=== PATIENT | male | born 1950 | race Two or more races ===

== ENCOUNTER 2019-08-31 12:44 | Inpatient (IN) | payer OTHER ==
[~2019-08-31] VITALS: Ht 165.1 cm; Wt 80.0 kg
[2019-08-31 14:03] LABS: Basophils # (auto) 0.1 uL; Basophils % (auto) 0.6 % (0.0-2.0); Eosinophils # (auto) 0.1 uL; Hematocrit 48.3 % (41.0-53.0); Lymphocytes # (auto) 2.4 uL; Lymphocytes % (auto) 18.3 % (10.0-50.0); Mean Corpuscular Hemoglobin 30.5 pg (28.0-32.0); Mean Corpuscular Volume 92.4 fL (80.0-100.0); Monocytes % (auto) 7.7 % (0.0-12.0); Neutrophils # (auto) 9.3 uL; Neutrophils % (auto) 72.4 % (37.0-80.0); Platelet Count (auto) 292 10^3/uL (140-450); Red Blood Cells 5.23 10^6/uL (4.5-5.90); Red Cell Distribution Width 14.1 % (11.8-14.3); White Blood Cell 12.9 10^3/uL (4.4-10.8)
[2019-08-31 14:19] LABS: INR 1.02 (0.9-1.15)
[2019-08-31] MEDS ORDERED: CLOPIDOGREL BISULFATE 75 MG TAB PO ONE (15:15)
[2019-08-31] MEDS ORDERED: LABETALOL HCL 5 MG/ML ML 20ML VIAL IV PRN (15:30)
[2019-08-31] MEDS ORDERED: LACTULOSE 20Gm/30ML SOLN PO PRN ×2 (15:30)
[2019-08-31] MEDS ORDERED: ACETAMINOPHEN 500 MG TAB PO PRN (15:30)
[2019-08-31] MEDS ORDERED: traMADol HCL 50 MG TAB PO PRN (15:30)
[2019-08-31] MEDS ORDERED: NITROGLYCERIN 0.4 MG SL TAB SL PRN (15:30)
[2019-08-31] MEDS ORDERED: methylPREDNISolone SOD SUCC 125 MG/2 ML VL IV ONE (15:30)
[2019-08-31] MEDS ORDERED: MORPHINE SULF INJ 2 MG/ML SYRINGE 1ML IV PRN (15:30)
[2019-08-31] MEDS ORDERED: PROMETHAZINE HCL 25 MG/ML 1ML IV PRN (15:30)
[2019-08-31] MEDS: methylPREDNISolone SOD SUCC 40 MG/ML VL IV SCH (15:30)
[2019-08-31] MEDS ORDERED: ALBUTEROL SULF 2.5 MG/0.5ML(0.5%) NEB SOLN NEB PRN (15:30)
[2019-08-31 16:00] LABS: Urine Bacteria NONE SEEN /hpf (None Seen); Urine Blood Negative /uL (Negative); Urine Hyaline Cast FEW /lpf (0 - 2); Urine Mucus FEW (None Seen); Urine Specific Gravity 1.025 (1.001-1.035); Urine WBC 4 /hpf (0 - 3)
[2019-08-31 16:11] LABS: Alcohol, Urine < 3.0 mg/dL (0-5); Amphetamine Screen, Urine NEGATIVE (NEGATIVE); Barbiturate Scree,Urine NEGATIVE (NEGATIVE); Benzodiazephine Screen, Urine NEGATIVE (NEGATIVE); Cannabinoid Screen, Urine NEGATIVE (NEGATIVE); Cocaine Screen, Urine NEGATIVE (NEGATIVE); Opiate Scree,Urine NEGATIVE (NEGATIVE); Phencyclidine Screen, Urine NEGATIVE (NEGATIVE)
[2019-08-31] MEDS: DOXYCYCLINE 100MG/250ML 250 ML IV SCH (16:34)
[2019-08-31] MEDS: SODIUM CHLORIDE 0.9% 1,000 ML IV SCH (16:35)
[2019-08-31] MEDS: ALBUTEROL SULF 2.5 MG/0.5ML(0.5%) NEB SOLN NEB SCH (18:22)
[2019-08-31] MEDS: IPRATROPIUM BROM 0.5 MG/2.5ML INH SOL NEB SCH (18:23)
--- NOTE | 2019-08-31 18:49 | NUR ---
PT ADMITTED TO FLOOR FROM E.R. VIA WHEEL CHAIR NO DISTRESS NOTED. PT REPORTS NO PAIN AT THIS TIME. PT A AND 0 X 4 AND AMBULATORY. PT ORIENTED TO UNIT AND CALL LIGHT. BED IN LOWEST LOCKED POSITION WITH SIDE RAILS UP X 2. VITALS: T 97.7, BP 149/86, 02 91% ON RA, HR 70, RR 16. PT EATING DINNER, FAMILY AT BEDSIDE, WILL CONTINUE TO MONITOR.
[2019-08-31 18:56] VITALS: BP 172/87
[2019-08-31] MEDS ORDERED: ASPI81CH43 PO (18:57)
[2019-08-31 19:02] VITALS: BP 149/86
[2019-08-31 20:00] VITALS: BP 121/62
--- NOTE | 2019-08-31 20:00 | NUR ---
Opening Shift Note Assumed care of patient, awake and alert. No S/S of distress/SOB or pain. Instructed on POC and to call for assist PRN, will continue to monitor for changes Q1hr and PRN. Patient resting in bed comfortably with family members at bedside. Bed in low position and call light in reach.
[2019-08-31] MEDS ORDERED: ATORVASTATIN 20 MG TAB PO SCH (22:00)
[2019-08-31 22:19] VITALS: BP 121/62
[2019-08-31] MEDS: TEMAZEPAM 15 MG CAP PO PRN (22:36)
[2019-09-01] MEDS: ALBUTEROL SULF 2.5 MG/0.5ML(0.5%) NEB SOLN NEB SCH ×4 (00:53→17:55)
[2019-09-01] MEDS: IPRATROPIUM BROM 0.5 MG/2.5ML INH SOL NEB SCH ×4 (00:53→17:55)
[2019-09-01] MEDS: methylPREDNISolone SOD SUCC 40 MG/ML VL IV SCH ×2 (03:58→17:17)
[2019-09-01] MEDS: DOXYCYCLINE 100MG/250ML 250 ML IV SCH ×2 (03:59→17:18)
[2019-09-01] MEDS: SODIUM CHLORIDE 0.9% 1,000 ML IV SCH ×3 (04:02→20:40)
[2019-09-01 05:51] VITALS: BP 140/66
[2019-09-01 06:35] LABS: Basophils # (auto) 0 uL; Basophils % (auto) 0.2 % (0.0-2.0); Eosinophils # (auto) 0 uL; Hematocrit 44.1 % (41.0-53.0); Hemoglobin 14.7 g/dL (13.5-17.5); Lymphocytes # (auto) 0.9 uL; Lymphocytes % (auto) 5.8 % (10.0-50.0); Mean Corpuscular Hemoglobin 30.8 pg (28.0-32.0); Mean Corpuscular Hgb Conc. 33.3 g/dL (32.0-36.0); Mean Corpuscular Volume 92.5 fL (80.0-100.0); Monocytes # (auto) 0.3 uL; Monocytes % (auto) 1.9 % (0.0-12.0); Neutrophils # (auto) 14.3 uL; Neutrophils % (auto) 92.1 % (37.0-80.0); Platelet Count (auto) 266 10^3/uL (140-450); Red Blood Cells 4.77 10^6/uL (4.5-5.90); Red Cell Distribution Width 14.2 % (11.8-14.3); White Blood Cell 15.5 10^3/uL (4.4-10.8)
[2019-09-01 07:02] LABS: Cholesterol 146 mg/dL (< 200); HDL Cholesterol 62 mg/dL (40-59); LDL Cholesterol 78 mg/dL (< 100); Triglycerides 59 mg/dL (< 150)
[2019-09-01 07:19] LABS: Albumin 3.1 g/dL (3.4-5.0); BUN/Creatinine Ratio 18.6; Calcium 8.6 mg/dL (8.5-10.1); Potassium 5.1 mmol/L (3.5-5.1)
[2019-09-01 07:22] LABS: Bilirubin, Total 0.3 mg/dL (0.2-1.0); Total Protein 6.4 g/dL (6.4-8.2)
[2019-09-01] MEDS: ASPirin 81 mg TAB PO SCH (08:47)
[2019-09-01] MEDS: ENOXAPARIN SOD 40 MG/0.4 ML SYRINGE SC SCH (08:47)
[2019-09-01 09:00] VITALS: BP 138/73
[2019-09-01] MEDS ORDERED: ENOXAPARIN SOD 40 MG/0.4 ML SYRINGE SC SCH (10:00)
--- NOTE | 2019-09-01 11:53 | NUR ---
DR MUNOZ SAW PATIENT AND FAMILY AND DISCUSSED POC. PATIENT AND FAMILY UPDATED ON PENDING TESTS. WILL CONTINUE TO MONITOR.
--- NOTE | 2019-09-01 11:57 | NUR ---
NEURO CONSULT CALLED IN AT 1600 ON 08/[address] MUNOZ PT WBC COUNT IS TRENDING UPWARD AT 15.5. AWARE.
[2019-09-01 13:00] VITALS: BP 133/77
[2019-09-01 17:00] VITALS: BP 134/67
--- NOTE | 2019-09-01 17:25 | NUR ---
Spoke with Dr Tavarez at nursing station, requested he see patient. Dr Tavarez aware. Influenza swab sent to lab.
--- NOTE | 2019-09-01 18:10 | NUR ---
SPOKE WITH DR LEMA AT NURSING STATION, REPORTS PATIENT CANNOT DRIVE.
--- NOTE | 2019-09-01 18:45 | NUR ---
RADIOLOGY CALLED. THEY REPORT ANOTHER IV IS NEEDED AND TO KEEP PT NPO FOR SCAN. ATTEMPTED IV TWICE USING STERILE TECHNIQUE, ONCE TO LFA AND ONCE TO LAC, UNSUCCESSFUL. PRESSURE DRESSINGS APPLIED. PT TOLERATED PROCEDURE WELL BUT REPORTS HE JUST WANTS TO SLEEP NOW. WILL ENDORSE TO [employer].
--- NOTE | 2019-09-01 19:05 | NUR ---
OPENING NOTE- NOC SHIFT PATIENT IS IN BED AND STATES THAT HE IS TIRED AND IS FEELING AGITATED. PATIENT STATES THAT HE WOULD LIKE A SLEEPING PILL AND WANTS TO SLEEP SOON POSSIBLE, STATES THAT HE HAS HAD LITTLE SLEEP FOR TWO DAYS. PATIENT BED IS LOCKED AT LOWEST, BED RAILS UP X2 AND HEAD OF BED IS UP >30 DEGREES FOR SAFETY PRECAUTIONS. BEDSIDE TABLE WITHIN REACH, CALL LIGHT WITHIN REACH. DISCUSSED POC WITH PATIENT AND INSTRUCTED PATIENT TO CALL PRN; PATIENT VERBALIZED UNDERSTANDING. WILL CONTINUE TO MONITOR Q1H AND PRN.
[2019-09-01] MEDS: TEMAZEPAM 15 MG CAP PO PRN (20:40)
--- NOTE | 2019-09-01 20:40 | NUR ---
PER DR LUNA STEINER TO HAVE CT ANGIO ON 09/02; PATIENT REFUSES TONIGHT.
[2019-09-01] MEDS: ATORVASTATIN 20 MG TAB PO SCH (20:42)
[2019-09-01 22:00] VITALS: BP 130/67
[2019-09-02] MEDS: methylPREDNISolone SOD SUCC 40 MG/ML VL IV SCH (03:18)
[2019-09-02] MEDS: DOXYCYCLINE 100MG/250ML 250 ML IV SCH (03:18)
[2019-09-02] MEDS: SODIUM CHLORIDE 0.9% 1,000 ML IV SCH ×2 (03:18→14:42)
--- NOTE | 2019-09-02 03:19 | NUR ---
PATIENT STATES THAT HE WILL NOT HAVE CT ANGIO IN THE MORNING. PATIENT STATES THAT THIS PROCEDURES IS CAUSING HIM ANXIETY AND STRESS AND THAT HE DOES NOT WANT TO HAVE IT DONE. PATIENT STATES "THERE HAS TO BE SOME OTHER WAY TO SATISFY THIS WHOLE INSURANCE THING". PATIENT REFUSES TO HAVE A SECOND IV INSERTED WHICH IS NECESSARY FOR THE THE CT. EDUCATED PATIENT ON IMPORTANCE OF READING OF CT ANGIO BUT PATIENT STILL REFUSES.
[2019-09-02] MEDS: ALBUTEROL SULF 2.5 MG/0.5ML(0.5%) NEB SOLN NEB SCH ×4 (05:38→19:04)
[2019-09-02] MEDS: IPRATROPIUM BROM 0.5 MG/2.5ML INH SOL NEB SCH ×4 (05:38→19:04)
[2019-09-02 06:00] VITALS: BP 140/70
--- NOTE | 2019-09-02 06:50 | NUR ---
CLOSING NOTE- NOC SHIFT PATIENT RESTING IN BED. PATIENT UP TO RESTROOM MULTIPLE TIMES DURING THE NIGHT. STEADY GAIT NOTED. PATIENT CONTINUES TO REFUSE CT ANGIO SCANS; RADIOLOGY DEPT MADE AWARE. PATIENT INSISTS THAT HE DOES NOT WANT A SECOND IV INSERTED. WILL ENDORSE PATIENT CARE TO DAY SHIFT RN.
--- NOTE | 2019-09-02 08:00 | NUR ---
Received pt resting in bed, call light within reach, no pain or distress noted or reported, will continue to monitor pt.
[2019-09-02] MEDS: ASPirin 81 mg TAB PO SCH (09:29)
[2019-09-02] MEDS: ENOXAPARIN SOD 40 MG/0.4 ML SYRINGE SC SCH (09:30)
[2019-09-02 10:00] VITALS: BP 130/72
--- NOTE | 2019-09-02 11:36 | NUR ---
Assessment and ss consult Pt is a 69 year old alert and oriented female. SS consult given for "living situation." Pt's neighbor, Ashish, are his emergency contact at [phone]. Prior to admit, pt was ambulatory and independent with ADL's. Pt stated that he was admitted because he hit his head and that he is having a hard time remembering things. Pt stated that he is currently able to walk, talk and build still but stated that he is having memory problems currently. 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 Pt's stated that he has really good support from his neighbors and that his family will be in town during the upcoming weekend and can help out where needed. Pt stated that his neighbor, Rosalba, will transport him home. Addendum: 09/02/19 at 1158 by MALGORZATA QUINTANA Amended: Links added.
[2019-09-02 12:00] VITALS: BP 136/71
[2019-09-02] MEDS: DOXYCYCLINE 100 MG TAB/CAP PO SCH (15:16)
[2019-09-02 17:00] VITALS: BP 113/58
--- NOTE | 2019-09-02 17:25 | NUR ---
Dr. Lopez / neuro at unit, doctor informed of pt's brain MRI and neck MRI results, no orders received.
--- NOTE | 2019-09-02 19:00 | NUR ---
OPENING NOTE- NOC SHIFT PATIENT IS ALERT AND ORIENTED X4, PATIENT IS COMFORTABLE IN BED. NO S/SX OF DISTRESS, SOB OR PAIN. PATIENT STATES THAT HE WOULD LIKE TO GO TO SLEEP EARLY AND STATES THAT HE WILL BE GOING HOME TOMORROW. BEDSIDE TABLE WITHIN REACH, CALL LIGHT WITHIN REACH. DISCUSSED POC WITH PATIENT AND INSTRUCTED PATIENT TO CALL PRN; PATIENT VERBALIZED UNDERSTANDING. WILL CONTINUE TO MONITOR Q1H AND PRN.
[2019-09-02] MEDS: ATORVASTATIN 20 MG TAB PO SCH (20:17)
[2019-09-02] MEDS: TEMAZEPAM 15 MG CAP PO PRN (20:18)
--- NOTE | 2019-09-02 20:24 | NUR ---
PATIENT REQUESTS SCHEDULED 2200 DOSE OF LIPITOR AT THIS TIME. PATIENT STATES "I ALWAYS TAKE IT AT BEDTIME AND THIS IS MY BEDTIME." MEDICATION ADMINISTERED.
[2019-09-02 22:02] VITALS: BP 115/53
--- NOTE | 2019-09-02 22:30 | NUR ---
PATIENT UP TO BATHROOM. STEADY GAIT NOTED.
--- NOTE | 2019-09-03 00:25 | NUR ---
ROUNDS PATIENT IS RESTING COMFORTABLE IN BED. NO S/SX OF DISTRESS, SOB OR PAIN. PATIENT IS RESTING EYES CLOSED; APPEARS TO BE SLEEPING. WILL CONTINUE TO MONITOR Q1H AND PRN.
--- NOTE | 2019-09-03 00:44 | NUR ---
Respiratory note: AFTER PT'S SCHEDULED TX AT 1914, THE PT REQUESTED NOT TO BE WOKEN UP IF SLEEPING FOR HIS NEXT SCHEDULED TX AT 0000. CHECKED ON PT AT 0044 AND PT WAS SLEEPING AT THIS TIME, WITH NO SIGNS OF RESPIRATORY DISTRESS. MEDICATION HELD.
--- NOTE | 2019-09-03 02:15 | NUR ---
REASSESS PATIENT IS SLEEPING IN BED. NO S/SX OF DISTRESS OR SOB. BED IS LOCKED AT LOWEST POSITION, CALL LIGHT WITHIN REACH.
[2019-09-03] MEDS: SODIUM CHLORIDE 0.9% 1,000 ML IV SCH ×3 (02:25→21:06)
[2019-09-03] MEDS: DOXYCYCLINE 100 MG TAB/CAP PO SCH ×2 (03:24→14:30)
--- NOTE | 2019-09-03 04:30 | NUR ---
PATIENT UP TO BATHROOM NO S/SX OF DISTRESS, SOB OR PAIN. PATIENT AMBULATES INDEPENDENTLY; STEADY GAIT NOTED.
[2019-09-03] MEDS: IPRATROPIUM BROM 0.5 MG/2.5ML INH SOL NEB SCH ×4 (05:42→18:53)
[2019-09-03] MEDS: ALBUTEROL SULF 2.5 MG/0.5ML(0.5%) NEB SOLN NEB SCH ×4 (05:42→18:53)
--- NOTE | 2019-09-03 06:49 | NUR ---
CLOSING NOTE; NOC SHIFT NO CHANGES DURING BURRER MARKER AXLE. NO S/SX OF DISTRESS, SOB OR PAIN. WILL ENDORSE PATIENT CARE TO DAY SHIFT NURSE.
[2019-09-03 08:00] VITALS: BP 148/81
[2019-09-03] MEDS: ASPirin 81 mg TAB PO SCH (09:51)
[2019-09-03] MEDS: ENOXAPARIN SOD 40 MG/0.4 ML SYRINGE SC SCH (09:51)
--- NOTE | 2019-09-03 10:05 | NUR ---
Dr. Garner at bed side to see pt, doctor discussed plan of care with pt,
[2019-09-03 12:00] VITALS: BP 123/76
[2019-09-03 17:00] VITALS: BP 121/84
--- NOTE | 2019-09-03 18:40 | NUR ---
Dr. Lopez / neuro at unit to see pt, doctor informed that Dr. Garner wants to know if pt is clear for d/c and what is the plan.
[2019-09-03] MEDS: TEMAZEPAM 15 MG CAP PO PRN (21:06)
[2019-09-03] MEDS: ATORVASTATIN 20 MG TAB PO SCH (21:06)
[2019-09-03 23:02] VITALS: BP 121/84
[2019-09-03 23:14] VITALS: BP 131/65
--- NOTE | 2019-09-04 00:05 | NUR ---
Respiratory note: PT REFUSED SCHED MED NEB AT THIS TIME. PT APPEARS TO BE RESTING COMFORTABLY WITH NO S/S OF SOB OR RESPIRATORY DISTRESS. WILL CONTINUE TO MONITOR.
[2019-09-04] MEDS: DOXYCYCLINE 100 MG TAB/CAP PO SCH (04:26)
[2019-09-04 05:00] VITALS: BP 116/66
[2019-09-04] MEDS: SODIUM CHLORIDE 0.9% 1,000 ML IV SCH (05:58)
[2019-09-04] MEDS: ALBUTEROL SULF 2.5 MG/0.5ML(0.5%) NEB SOLN NEB SCH ×3 (07:11→13:08)
[2019-09-04] MEDS: IPRATROPIUM BROM 0.5 MG/2.5ML INH SOL NEB SCH ×3 (07:11→13:08)
[2019-09-04 09:00] VITALS: BP 141/83
[2019-09-04] MEDS: ASPirin 81 mg TAB PO SCH (10:03)
[2019-09-04] MEDS: ENOXAPARIN SOD 40 MG/0.4 ML SYRINGE SC SCH (10:04)
--- NOTE | 2019-09-04 10:49 | NUR ---
Dr. Garner at bed side to see pt, doctor discussed the plan of care with pt.
--- NOTE | 2019-09-04 11:10 | NUR ---
Called and spoke to pt's sister Edith to inform her that pt has been d/c by Dr. Garner. Pt's sister will come and picker operator pt in about one to two hours.
[2019-09-04 11:14] VITALS: BP 141/83
[2019-09-04 12:25] VITALS: BP 130/72
--- NOTE | 2019-09-04 13:09 | NUR ---
Respiratory note: PT REFUSING SCHEDULED MED NEB TX, STATES HE IS GOING HOME AND DOESN'T NEED ONE. HR 78 RR 18 SPO2 93% ON RA. PT AND RN AWARE TO HAVE RT PAGED IF NEEDED PRIOR TO DC.
--- NOTE | 2019-09-04 13:30 | NUR ---
Discharge instructions given as ordered. Encourage to follow up with PMD and neurologist as instructed. All questions and concerns addressed. Patient and patient's sister verbalized understanding. Medication reconciliation form completed and copy given to patient. No home medications held in Pharmacy, and no needed vaccines to be given. IV removed with catheter intact, pressure dressing applied. Telemetry unit returned to ICU. Patient taken to vehicle via wheelchair with all personal belongings, accompanied by staff and family member. No distress noted at time of departure.
== END 2019-09-04 13:33 | disposition home or self-care (01) | DRG 66 ==
LOC: ER 12:44 → TELE 12:45 → TELE-WESTW 18:32
PROVIDERS: ADMIT Internal Medicine; ATTEND Family Medicine
DX: I63.9 Cerebral infarction, unspecified (principal); H53.461 Homonymous bilateral field defects, right side; I10 Essential (primary) hypertension; J44.9 Chronic obstructive pulmonary disease, unspecified; Z60.2 Problems related to living alone; J20.9 Acute bronchitis, unspecified; F17.210 Nicotine dependence, cigarettes, uncomplicated; Z79.82 Long term (current) use of aspirin; Z79.899 Other long term (current) drug therapy; Z91.81 History of falling; Z82.49 Family history of ischemic heart disease and other diseases of the circulatory system; Z82.5 Family history of asthma and other chronic lower respiratory diseases; Z86.73 Personal history of transient ischemic attack (TIA), and cerebral infarction without residual deficits
CPT/HCPCS: 36415; 70450; 70545; 70547; 70551; 71045; 80053; 80061; 80307; 81001; 82550; 85025; 85610; 85652; 87804; 93005; 93306; 93886; 94640; 96365; 96375; 99291; G0378; J3490

== ENCOUNTER → 2021-10-05 | Outpatient (CLI) | payer OTHER ==
[~2021-10-05] MED LIST: ASPI81CH43 PO
[2021-10-05 09:27] LABS: Basophils # (auto) 0.1 10 ^3/uL (0-0.2); Basophils % (auto) 0.7 % (0.0-2.0); Eosinophils # (auto) 0.2 10 ^3/uL (0-0.8); Eosinophils % (auto) 2.5 % (0.0-7.0); Hematocrit 41.8 % (41.0-53.0); Hemoglobin 13.8 g/dL (13.5-17.5); Mean Corpuscular Hemoglobin 29.7 pg (28.0-32.0); Mean Corpuscular Volume 89.9 fL (80.0-100.0); Monocytes # (auto) 0.8 10 ^3/uL (0-1.3); Monocytes % (auto) 8.6 % (0.0-12.0); Neutrophils # (auto) 6.5 10 ^3/uL (1.6-8.6); Neutrophils % (auto) 67.2 % (37.0-80.0); Nucleated Red Blood Cells % 0.1 %; Red Blood Cells 4.65 10^6/uL (4.5-5.90); White Blood Cell 9.7 10^3/uL (4.4-10.8)
[2021-10-05 09:55] LABS: Urine Bacteria NONE SEEN /hpf (None Seen); Urine Blood Negative /uL (Negative); Urine Specific Gravity 1.014 (1.001-1.035); Urine WBC <1 /hpf (0 - 3)
[2021-10-05 10:39] LABS: Potassium 4.9 mmol/L (3.5-5.1)
[2021-10-05 10:52] LABS: Albumin 3.6 g/dL (3.4-5.0); BUN/Creatinine Ratio 14.8; Bilirubin, Total 0.4 mg/dL (0.2-1.0); Calcium 9.5 mg/dL (8.5-10.1); Total Protein 7.9 g/dL (6.4-8.2)
== END | disposition home or self-care (01) ==
LOC: LAB 08:03
PROVIDERS: ATTEND Student in an Organized Health Care Education/Training Program
DX: R73.9 Hyperglycemia, unspecified (principal); I10 Essential (primary) hypertension
CPT/HCPCS: 36415; 80053; 80061; 81001; 83036; 84443; 85025

== ENCOUNTER → 2023-01-30 | Outpatient (CLI) | payer OTHER ==
[2023-01-30 08:12] LABS: Basophils # (auto) 0.1 10 ^3/uL (0-0.2); Basophils % (auto) 0.8 % (0.0-2.0); Eosinophils # (auto) 0.3 10 ^3/uL (0-0.8); Eosinophils % (auto) 2.7 % (0.0-7.0); Hematocrit 43.7 % (41.0-53.0); Hemoglobin 14.5 g/dL (13.5-17.5); Lymphocytes # (auto) 2.3 10 ^3/uL (0.4-5.4); Mean Corpuscular Hemoglobin 30.1 pg (28.0-32.0); Mean Corpuscular Hgb Conc. 33.2 g/dL (32.0-36.0); Mean Corpuscular Volume 90.8 fL (80.0-100.0); Monocytes # (auto) 1.1 10 ^3/uL (0-1.3); Monocytes % (auto) 11.3 % (0.0-12.0); Neutrophils # (auto) 5.8 10 ^3/uL (1.6-8.6); Neutrophils % (auto) 61.2 % (37.0-80.0); Nucleated Red Blood Cells % 0.1 %; Red Blood Cells 4.81 10^6/uL (4.5-5.90); Red Cell Distribution Width 14.4 % (11.8-14.3); White Blood Cell 9.5 10^3/uL (4.4-10.8)
[2023-01-30 08:31] LABS: Urine Bacteria NONE SEEN /hpf (None Seen); Urine Blood Negative /uL (Negative); Urine Specific Gravity 1.017 (1.001-1.035); Urine WBC <1 /hpf (0 - 3)
[2023-01-30 08:58] LABS: Potassium 4.8 mmol/L (3.5-5.1)
[2023-01-30 09:07] LABS: Albumin 3.6 g/dL (3.4-5.0); BUN/Creatinine Ratio 14.1 (10.0-20.0); Bilirubin, Total 0.4 mg/dL (0.2-1.0); Calcium 9.2 mg/dL (8.5-10.1); Total Protein 8.1 g/dL (6.4-8.2)
== END | disposition home or self-care (01) ==
LOC: LAB 07:46
PROVIDERS: ATTEND Student in an Organized Health Care Education/Training Program
DX: I10 Essential (primary) hypertension (principal); E78.5 Hyperlipidemia, unspecified
CPT/HCPCS: 36415; 80053; 80061; 81001; 83036; 84443; 85025

== ENCOUNTER → 2024-02-16 | Outpatient (CLI) | payer OTHER ==
[2024-02-16 08:51] LABS: Basophils # (auto) 0.1 10 ^3/uL (0-0.2); Basophils % (auto) 0.8 % (0.0-2.0); Eosinophils # (auto) 0.8 10 ^3/uL (0-0.8); Eosinophils % (auto) 6.7 % (0.0-7.0); Hematocrit 39.6 % (41.0-53.0); Hemoglobin 13.1 g/dL (13.5-17.5); Lymphocytes # (auto) 2.2 10 ^3/uL (0.4-5.4); Lymphocytes % (auto) 18.9 % (10.0-50.0); Mean Corpuscular Hemoglobin 30.1 pg (28.0-32.0); Mean Corpuscular Hgb Conc. 33.1 g/dL (32.0-36.0); Mean Corpuscular Volume 90.9 fL (80.0-100.0); Monocytes # (auto) 1.2 10 ^3/uL (0-1.3); Monocytes % (auto) 10.3 % (0.0-12.0); Neutrophils # (auto) 7.2 10 ^3/uL (1.6-8.6); Neutrophils % (auto) 63.3 % (37.0-80.0); Nucleated Red Blood Cells % 0.1 %; Red Blood Cells 4.35 10^6/uL (4.5-5.90); Red Cell Distribution Width 14.8 % (11.8-14.3); White Blood Cell 11.4 10^3/uL (4.4-10.8)
[2024-02-16 08:53] LABS: Urine Bacteria FEW /hpf (None Seen); Urine Blood Negative /uL (Negative); Urine Clarity Clear (Clear); Urine Color Light-Yellow (Yellow); Urine Mucus FEW (None Seen); Urine Protein, UAD Negative (Negative); Urine Specific Gravity 1.017 (1.001-1.035); Urine Urobilinogen Normal (Negative); Urine WBC <1 /hpf (0 - 3)
[2024-02-16 10:29] LABS: Alanine Aminotransferase 13 U/L (7-40); Alkaline Phosphatase 63 U/L (46-116); Anion Gap 5 (5-15); BUN/Creatinine Ratio 13.4 (10.0-20.0); Blood Urea Nitrogen 17 mg/dL (9-23); Calcium 9.7 mg/dL (8.7-10.4); Carbon Dioxide 27 mmol/L (20-30); Chloride 107 mmol/L (98-107); Glucose 108 mg/dL (74-106); Sodium 139 mmol/L (136-145); Triglycerides 87 mg/dL (< 150)
[2024-02-16 10:30] LABS: LDL Cholesterol 135 mg/dL (< 100)
[2024-02-16 10:31] LABS: Albumin 4.2 g/dL (3.2-4.8); Aspartate Aminotransferase 12 U/L (13-40); Bilirubin, Total 0.3 mg/dL (0.2-1.0); Cholesterol 201 mg/dL (< 200); HDL Cholesterol 58 mg/dL (40-59); Total Protein 7.2 g/dL (5.7-8.2)
== END | disposition home or self-care (01) ==
LOC: LAB 08:31
PROVIDERS: ATTEND Student in an Organized Health Care Education/Training Program
DX: Z12.5 Encounter for screening for malignant neoplasm of prostate (principal); I10 Essential (primary) hypertension; E78.5 Hyperlipidemia, unspecified; R73.9 Hyperglycemia, unspecified
CPT/HCPCS: 36415; 80053; 80061; 81001; 83036; 84153; 85025

== ENCOUNTER → 2024-07-29 | Outpatient (CLI) | payer OTHER ==
[2024-07-29 09:16] LABS: Urine Bacteria None Seen /hpf (None Seen); Urine WBC None Seen /hpf (0 - 3)
[2024-07-29 10:31] LABS: Alanine Aminotransferase 14 U/L (7-40); Albumin 4.2 g/dL (3.2-4.8); Alkaline Phosphatase 67 U/L (46-116); Anion Gap 6 (5-15); Aspartate Aminotransferase 13 U/L (13-40); BUN/Creatinine Ratio 11.4 (10.0-20.0); Blood Urea Nitrogen 15 mg/dL (9-23); Calcium 10.2 mg/dL (8.7-10.4); Carbon Dioxide 29 mmol/L (20-31); Chloride 105 mmol/L (98-107); Sodium 140 mmol/L (136-145); Triglycerides 68 mg/dL (< 150)
[2024-07-29 10:32] LABS: Cholesterol 192 mg/dL (< 200); Total Protein 7.5 g/dL (5.7-8.2)
[2024-07-29 10:37] LABS: Bilirubin, Total 0.2 mg/dL (0.2-1.0); Glucose 109 mg/dL (74-106); HDL Cholesterol 64 mg/dL (40-59); LDL Cholesterol 124 mg/dL (< 100); Potassium 5.1 mmol/L (3.5-5.1)
[2024-07-29 10:46] LABS: Urine Blood Negative /uL (Negative); Urine Clarity Clear (Clear); Urine Color Colorless (Yellow); Urine Protein, UAD Negative (Negative); Urine Specific Gravity 1.007 (1.001-1.035); Urine Squamous Epithelial Cell None Seen /hpf (<5); Urine Urobilinogen Normal (Negative); Urine pH 5.5 (5.0-9.0)
== END | disposition home or self-care (01) ==
LOC: LAB 08:56
PROVIDERS: ATTEND Student in an Organized Health Care Education/Training Program
DX: I10 Essential (primary) hypertension (principal); E78.5 Hyperlipidemia, unspecified
CPT/HCPCS: 36415; 80053; 80061; 81001

== ENCOUNTER 2025-03-13 08:49 | Outpatient (CLI) | payer OTHER ==
[2025-03-13 09:36] LABS: Urine Protein, UAD Negative (Negative)
[2025-03-13 09:37] LABS: Alanine Aminotransferase 13 U/L (7-40); Albumin 4.5 g/dL (3.2-4.8); Alkaline Phosphatase 52 U/L (46-116); Anion Gap 7 (5-15); BUN/Creatinine Ratio 16.2 (10.0-20.0); Calcium 9.3 mg/dL (8.7-10.4); Carbon Dioxide 26 mmol/L (20-31); Chloride 106 mmol/L (98-107); Sodium 139 mmol/L (136-145); Total Protein 7.5 g/dL (5.7-8.2); Triglycerides 100 mg/dL (< 150)
[2025-03-13 09:38] LABS: HDL Cholesterol 56 mg/dL (40-59); Hematocrit 39.5 % (41.0-53.0); Hemoglobin 13.1 g/dL (13.5-17.5); Mean Corpuscular Hemoglobin 30.2 pg (28.0-32.0); Mean Corpuscular Volume 91.2 fL (80.0-100.0); Nucleated Red Blood Cells % 0.0 %
[2025-03-13 09:54] LABS: Bilirubin, Total 0.3 mg/dL (0.2-1.0); Blood Urea Nitrogen 24 mg/dL (9-23); Cholesterol 201 mg/dL (< 200); Glucose 108 mg/dL (74-106); Potassium 5.4 mmol/L (3.5-5.1)
== END 2025-03-13 17:00 | disposition home or self-care (01) ==
LOC: LAB 08:49
PROVIDERS: ATTEND Student in an Organized Health Care Education/Training Program
DX: I10 Essential (primary) hypertension (principal); R73.9 Hyperglycemia, unspecified; R35.1 Nocturia
CPT/HCPCS: 36415; 80053; 80061; 81001; 83036; 84153; 84443; 85025